=== PATIENT | male | born 1960 | race Caucasian/White ===

== ENCOUNTER 2016-08-16 23:39 | Emergency (ER) | payer OTHER ==
[~2016-08-16] VITALS: Ht 182.9 cm; Wt 108.5 kg
[2016-08-17 00:24] LABS: HEMATOCRIT 38.7 % (38.0-50.0); MCH 28.9 PG (29.0-34.0); MCHC 34.6 G/DL (30.0-36.0); MCV 83.4 FL (86-99); MEAN PLAT.VOLUME 10.3 uM^3 (9.0-12.4); PLATELET COUNT 219 K/uL (156-360); RBC DIS.WIDTH-CV 14.9 % (11.8-14.6); RBC DIS.WIDTH-SD 45.2 % (39-53); RED BLOOD COUNT 4.64 M/uL (4.00-5.50); WHITE BLOOD COUNT 9.6 K/uL (4.1-10.2)
[2016-08-17 00:49] LABS: TROP-I INTERPRETATION NEGATIVE; TROPONIN-I < 0.01 ng/mL (0.0-0.30)
[2016-08-17 00:50] LABS: ADD MIUA? YES; BILIRUBIN NEGATIVE; BLOOD SMALL; COLOR YELLOW ((YELLOW)); GLUCOSE (STRIP) NEGATIVE; KETONES NEGATIVE; LEUKOCYTES NEGATIVE; NITRITE NEGATIVE; PROTEIN (STRIP) 30; SPECIFIC GRAVITY 1.013 (1.000-1.030); UROBILINOGEN 0.2 MG/DL (0.2-1.0)
[2016-08-17 00:56] LABS: BACTERIA NONE SEEN /HPF; EPITHELIAL CELLS NONE SEEN /HPF; MUCUS TRACE /LPF; RED BLOOD CELLS 0-5 /HPF (0-5); UCUL ADDED? NO; WHITE BLOOD CELLS 0-5 /HPF (0-5)
[2016-08-17 00:56] LABS: CHLORIDE 108 mEq/L (99-109); POTASSIUM 4.1 mEq/L (3.7-5.4); SODIUM 142 mEq/L (136-147)
[2016-08-17 00:58] LABS: GLUCOSE 117 mg/dL (70-99)
[2016-08-17 00:59] LABS: ANION GAP 12 MEQ/L (2-14)
[2016-08-17 01:00] LABS: TOTAL BILIRUBIN 0.6 mg/dL (0.0-1.0)
[2016-08-17 01:01] LABS: ALKALINE PHOSPHATASE 218 IU/L (3-129)
[2016-08-17 01:02] LABS: GFR ESTIMATE (CALCULATED) 25 mL/min/
[2016-08-17 01:03] LABS: UREA NITROGEN (BUN) 37 mg/dL (9-23)
[2016-08-17 01:05] LABS: CREATINE KINASE 49 IU/L (1-294); LIPASE 68 U/L (1.0-51.0); TOTAL CK 49 IU/L (1-294)
[2016-08-17 01:10] LABS: CK-MB 1.8 ng/mL (0.0-4.9)
[2016-08-17] MEDS ORDERED: FIORICET,ESG1 TABLET PO (01:48)
[2016-08-17 02:00] VITALS: BP 135/92
== END 2016-08-17 02:01 | disposition home or self-care (01) ==
LOC: EME 23:39
PROVIDERS: Emergency Medicine
DX: R51 Headache (principal); R42 Dizziness and giddiness; R07.9 Chest pain, unspecified; R11.2 Nausea with vomiting, unspecified; N18.9 Chronic kidney disease, unspecified; R79.89 Other specified abnormal findings of blood chemistry; R31.9 Hematuria, unspecified; I25.10 Atherosclerotic heart disease of native coronary artery without angina pectoris; I10 Essential (primary) hypertension; I25.2 Old myocardial infarction; Z86.73 Personal history of transient ischemic attack (TIA), and cerebral infarction without residual deficits; F17.200 Nicotine dependence, unspecified, uncomplicated
CPT/HCPCS: 74176; 80053; 80164; 81003; 82550; 82553; 83690; 84484; 85027; 93005; 99281; 99285; J0780; J1100; J1200; J1885; J3475; J7030